=== PATIENT | male | born 1975 | race Hispanic/Latino ===

== ENCOUNTER → 2019-01-12 | Outpatient (CLI) | payer BC ==
--- NOTE | 2019-01-12 09:33 | Diagnostic Imaging Report ---
TECHNIQUE: Magnetic resonance imaging of the RIGHT KNEE was performed WITHOUT injected contrast. HISTORY: PERPHERAL TEAR MEDIAL MENISCUS RT , lateral and medial pain, reported history of surgery in 2013 "cut my meniscus" COMPARISON: None available. FINDINGS: LIGAMENTS AND TENDONS: ACL: Intact PCL: Intact Collateral ligaments: Intact Iliotibial band: Unremarkable Popliteal tendon: Intact Extensor mechanism: Intact JOINT: Menisci: Medial: Attenuation and contour irregularity of the body, results in peripheral extrusion of the remnants. Lateral: Mild free margin attenuation of the body and posterior horn, without a discrete displaced tear. Articular Cartilage: Medial Compartment: Full-thickness erosions of the weightbearing cartilage. Lateral Compartment: No focal defect. Patellofemoral Compartment: High-grade to full-thickness erosions at the inferior aspect of the medial trochlea. Joint Fluid: Trace fluid within the joint and a minimally distended Rosas's cyst, mild ill-defined fluid signal intensity adjacent to the superior margin of the cyst. BONES: No focal or infiltrative bone marrow replacing abnormality. No acute fracture. SOFT TISSUES: Otherwise, unremarkable. IMPRESSION: 1. Postsurgical changes versus degenerative tearing of the body of the medial meniscus, results in peripheral extrusion of the body. 2. Medial greater than patellofemoral compartment osteoarthrosis. 3. Trace effusion and a minimally distended Rosas's cyst, which may be ruptured and partially decompressed. 4. Minimal postsurgical versus degenerative changes of the free margin of the lateral meniscus. Signed by: Dr. Carlos Louise D.O., M.M.M. on 01/12/2019 9:30 AM
== END ==
LOC: MRI 08:00
PROVIDERS: ATTEND Specialist
DX: S83.221A Peripheral tear of medial meniscus, current injury, right knee, initial encounter (principal)

== ENCOUNTER → 2019-10-21 | Day surgery (SDC) | payer BC ==
[~2019-10-21] MED LIST: ACETAMINOPHEN/CODEINE 300MG - 30MG TAB ONE; BUPIVACAINE 0.25%/EPI 30ML SDV INJ ONE; CEFAZOLIN SOD 1 GM/NS 50ML 100 ML IV ONE; DEXAMETHASONE SOD PHOS INJ 4 MG/ML VIAL ONE; ETOMIDATE 2 MG/ML 10 ML INJ IV ONE; LIDOCAINE HCL 2% LOCAL INJ 5 ML SDV VIAL INJ ONE; ONDANSETRON HCL INJ 2MG/ML 2ML 2 MG/ML VIAL ONE; SEVOFLURANE INHAL SOLN 250 ML PEN BTL ONE
[2019-10-21 11:10] VITALS: BP 131/79
--- NOTE | 2019-10-21 20:25 | Operative Report ---
DATE OF PROCEDURE: 10/21/2019 SURGEON: Cresencio Rodriguez MD PREOPERATIVE DIAGNOSIS: Recurrent right medial meniscus tear and degenerative joint disease of the right knee. POSTOPERATIVE DIAGNOSIS: Recurrent right medial meniscus tear and degenerative joint disease of the right knee. OPERATION/PROCEDURES PERFORMED: The patient underwent a right knee exam under anesthesia, right knee arthroscopy, right knee partial medial meniscectomy, right knee chondroplasty of the patella, the trochlea, the medial femoral condyle, and the lateral tibial plateau. KITCHEN CHEF: None. ANESTHESIA: General endotracheal intubation anesthesia. IV FLUIDS: Per the anesthesia record. BLOOD LOSS: Minimal. COMPLICATIONS: None. BRIEF DESCRIPTION OF THE PATIENT'S OPERATIVE PROCEDURE: Mr. Orr was taken to the operating room and placed in the supine position on the operating table. Following induction of general anesthesia as well as endotracheal intubation, the patient's right lower extremity was examined under anesthesia. He was found to have a mild effusion within the knee joint. He had well-healed incisions overlying in the knee consistent with previous knee arthroscopy. The patient's lower extremity was prepped and draped in standard surgical fashion. A two-port technique used to provide this patient arthroscopic approach to the knee joint. Examination of suprapatellar pouch, medial and lateral gutters found no evidence of loose bodies. There was however evidence of chondromalacia of the patella and trochlear surfaces. The scope was advanced into the medial compartment. Examination of medial compartment demonstrated a torn and macerated medial meniscus. There was a large extruded fragment at the posterior horn of the medial meniscus. There was also chondromalacia of the articulating surfaces. A combination of biting forceps and motorized shaver used to resect the torn portion of meniscus. Chondroplasties of the medial femoral condyle and medial tibial plateau were performed at this time. Scope was then advanced to the intercondylar notch. The anterior cruciate ligament was identified and found to be intact. Scope was advanced to lateral compartment and there was mild chondromalacia of the lateral tibial plateau. A chondroplasty of the surface was performed. The scope was then placed in the suprapatellar pouch and chondroplasty of the patella and trochlea were performed. The knee was then deflated with sterile normal saline. The portal sites were closed using 4-0 nylon suture. The portal sites as well as knee itself were then injected with 0.25% Marcaine with epinephrine. Sterile dressings were applied. The patient was then awakened and taken to postanesthesia care unit in stable condition. MD ISELA Jones/GIAN /[id number]
== END | disposition home or self-care (01) ==
LOC: OR 07:34
PROVIDERS: ATTEND Specialist
DX: S83.241A Other tear of medial meniscus, current injury, right knee, initial encounter (principal); M17.11 Unilateral primary osteoarthritis, right knee; M22.41 Chondromalacia patellae, right knee; E66.9 Obesity, unspecified; X58.XXXA Exposure to other specified factors, initial encounter; Z88.2 Allergy status to sulfonamides; Z01.810 Encounter for preprocedural cardiovascular examination; Z01.812 Encounter for preprocedural laboratory examination; Z11.59 Encounter for screening for other viral diseases
CPT/HCPCS: 29881; 87635; 93005; J0690; J1100; J2001; J2405

== ENCOUNTER 2019-11-17 12:12 | Outpatient (RCR) | payer BC | END 2019-12-10 | LOC: PT 12:12 | PROVIDERS: ATTEND Specialist | DX: S83.200D Bucket-handle tear of unspecified meniscus, current injury, right knee, subsequent encounter (principal); M62.81 Muscle weakness (generalized); R26.2 Difficulty in walking, not elsewhere classified; M25.561 Pain in right knee; M25.661 Stiffness of right knee, not elsewhere classified | CPT/HCPCS: 97139 ==